=== PATIENT | female | born 1965 | race Caucasian/White ===

== ENCOUNTER 2017-11-28 20:03 | Emergency (ER) | payer OTHER, SELFPAY ==
[2017-11-28 20:04] VITALS: BP 128/76; PULSE 67; RESP 18; TEMP 36.1; O2SAT 98; BMI 30.7
[2017-11-28 21:07] LABS: D-Dimer Quantitative (DVT/PE) 0.44 FEU/ug/m (0.27-0.49)
--- NOTE | 2017-11-28 21:42 | ED.VISSUMM ---
- ER Visit Summary Date of Service: 11/28/17 Chief Complaint: Right calf pain status post long distance trip concern for pulmonary embolus History of Present Illness: The patient is a 51 F who presents with atraumatic right calf pain and lateral leg pain that started day after long distance trip. She denies chest pain, shortness of breath or difficulty breathing. She has no history of PE or DVT. She denies palpitation or rapid heartbeat. She denies dyspnea on exertion, orthopnea or PND. She denies any leg vein distention, right leg swelling or discoloration. Physical Examination: Vital signs noted and blood pressure slightly elevated 120/76. There is pain palpation proximal right gastrocnemius. There is no asymmetry, discoloration, leg vein distention, palpable cords or swelling. Remainder of exam is unremarkable please read written note Test Results: D-dimer is normal 0.44 Emergency Department Course and Treatment: Patient's well score was 1. She is low probability therefore will obtain d-dimer. Treatment Plan: Since d-dimer is negative symptomatic treatment Disposition: Discharged to home Impression: Right calf pain unknown etiology This note was generated with [employer] dictation software. It may contain incorrect words, spelling, and punctuation that were not noted in review of the chart prior to signing ED Disposition - Plan for ED Patient: Disposition: Home or Assisted Living Chief Complaint: Lower Extremity Injury Instructions: ED Acute Pain [facility] Referrals: Radha Marion DO [Primary Care Provider] - 1 Week if not improving
[2017-11-28 22:22] VITALS: BP 109/89; PULSE 54; RESP 14; O2SAT 97; O2SAT 98
== END 2017-11-28 22:25 | disposition home or self-care (01) ==
PROVIDERS: Emergency Provider Emergency Medicine; Family Provider Internal Medicine; PCP Internal Medicine
DX: M79.661 Pain in right lower leg (principal); R03.0 Elevated blood-pressure reading, without diagnosis of hypertension; Z79.899 Other long term (current) drug therapy
CPT/HCPCS: 85379; 99282

== ENCOUNTER → 2017-12-02 10:25 | Outpatient (CLI) | payer OTHER, SELFPAY | PROVIDERS: Family Provider Internal Medicine; PCP Internal Medicine; Visit Provider Nurse Practitioner | DX: M25.561 Pain in right knee (principal); M79.661 Pain in right lower leg | CPT/HCPCS: 73564; 93971 ==

== ENCOUNTER → 2017-12-15 09:58 | Outpatient (CLI) | payer OTHER, SELFPAY ==
--- NOTE | 2017-12-15 10:02 | BI_ITS ---
MAMMOGRAPHY - BILATERAL SCREENING REASON FOR EXAM: Female, 52 years old. Routine annual screening examination. PERTINENT HISTORY: Sister with breast cancer. Remote right stereotactic breast biopsy. TECHNIQUE: Digital bilateral breast sander (3D mammographic acquisition) in the CC and MLO projections. 2-D mediolateral oblique (MLO) and craniocaudad (CC) views of both breasts were obtained. CAD: Full Field Digital Mammography with Computer Added Detection was performed. COMPARISON: Comparison is made with prior study dated June 27, 2016 and June 14, 2015. FINDINGS: Breast Composition: There are scattered areas of fibroglandular density. There are no dominant masses or suspicious calcifications. A stereotactic tissue clip marker is seen in the upper deep slightly lateral portion of the left breast. Stable small benign-appearing bilateral axillary lymph nodes. No other significant abnormalities are identified. There has been no significant change since the prior study. BI/SCREENING MAMM (CAD), BILAT IMPRESSION: Stable bilateral screening mammogram. Yearly follow-up mammogram recommended. (A) ASSESSMENT CATEGORY: BIRADS Category 2: Benign. A letter regarding these results will be sent to the patient by the facility within 30 days. Approximately 10% of breast cancers are not detected by mammography. A normal mammogram should not delay biopsy of a clinically suspicious abnormality. [id number] Electronically Signed: Leonides Forbes MD at 13:14 EDT Tel [phone], Service support ,
== END ==
PROVIDERS: Family Provider Internal Medicine; PCP Internal Medicine; Visit Provider Nurse Practitioner
DX: Z12.31 Encounter for screening mammogram for malignant neoplasm of breast (principal)
CPT/HCPCS: 77063; 77067

== ENCOUNTER → 2017-12-25 09:44 | Outpatient (CLI) | payer OTHER, SELFPAY ==
--- NOTE | 2017-12-25 10:45 | MRI_ITS ---
STUDY: MRI LUMBAR SPINE WITHOUT CONTRAST REASON FOR EXAM: Female, 52 years old. Pain, right leg numbness and tingling and weakness in right foot x one month. History of spinal fusion in 2005. TECHNIQUE: Standardized fat and water weighted pulse sequences were obtained in the sagittal and axial planes. COMPARISON: None FINDINGS: T11-T12: (Sagittal only). Normal endplates. Normal disc height, hydration and morphology. Normal central canal and bilateral intervertebral neural foramina. T12-L1: (Sagittal only). Normal endplates. Normal disc height, hydration and morphology. Normal central canal and bilateral intervertebral neural foramina. Normal lumbar lordosis. There is no substantial scoliosis. Normal conus medullaris that terminates at the lower L1 vertebral body level. L1-2: Normal endplates. Normal disc height, hydration and morphology. Normal bilateral facet joints. Normal central canal and bilateral lateral recesses. Normal bilateral intervertebral neural foramina. L2-3: Normal endplates. Normal disc height, hydration and morphology. Normal bilateral facet joints. Normal central canal and bilateral lateral recesses. Normal bilateral intervertebral neural foramina. L3-4: Normal endplates. Mild disc space height narrowing with moderate loss of disc hydration. Decreased size of small posterior midline disc protrusion. Mild central canal stenosis with an AP canal diameter of 7.7 mm it. Normal bilateral lateral recesses. Normal facet joints. Normal bilateral intervertebral neural foramina. L4-5: Interval placement of a disc implant. Pedicular screws at L4 and L5. Normal central canal and bilateral lateral recesses. Moderate stenosis of the right intervertebral neural foramen due to a prominent bone fragment below the right intervertebral neural foramen (series 2 and 3, image 10). Normal left intervertebral neural foramen. Normal central canal. L5-S1: Disc implant inside the disc space. Pedicular screws and rods. Normal bilateral intervertebral neural foramina. Normal central canal and bilateral lateral recesses. Right lateral extradural defect extends from the right L5 hemilaminectomy. This is most likely postoperative fibrosis. Normal bilateral intervertebral neural foramina. Normal visualized sacral ala. Normal visualized paraspinous soft tissue structures. MRI/Spine Lumbar (Routine) IMPRESSION: 1. 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 2. Interval posterior fusion using pedicular screws and rods from L4 down to S1 and interval placement of disc implants inside the L4-L5 and L5-S1 disc spaces. 3. Mild central canal stenosis at L3-L4 disc space level with decrease in size of now small posterior midline disc protrusion. 4. Right lateral extradural defect extends from the right L5 hemilaminectomy site. This is most likely postoperative fibrosis. 5. No other additional findings or changes since 07/11/2005. Electronically Signed: Anil Manning MD at 14:34 EDT , Service support ,
== END ==
PROVIDERS: Family Provider Internal Medicine; PCP Internal Medicine; Referring Provider Orthopaedic Surgery Orthopaedic Surgery of the Spine; Visit Provider Orthopaedic Surgery Orthopaedic Surgery of the Spine
DX: M51.16 Intervertebral disc disorders with radiculopathy, lumbar region (principal); M48.062 Spinal stenosis, lumbar region with neurogenic claudication
CPT/HCPCS: 72148

== ENCOUNTER 2018-02-03 07:26 | Day surgery (SDC) | payer OTHER, SELFPAY ==
[2018-02-03 07:48] VITALS: BP 140/94; PULSE 55; RESP 16; TEMP 36.7; O2SAT 99; BMI 31.3
[2018-02-03] MEDS: Lactated Ringers 1,000 ML 125 ML IV (08:17)
--- NOTE | 2018-02-03 09:30 | RAD_ITS ---
STUDY: X-RAY - RIGHT KNEE REASON FOR EXAM: Female, 52 years old. Arthroscopy. TECHNIQUE: 2 coned-down intraoperative view(s) of the knee. COMPARISON: None. FINDINGS: Intraoperative imaging provided for arthroscopy. The tip of the trocar is seen along the medial tibial condyle. RAD/Knee 1 or 2 Views IMPRESSION: Intraoperative imaging for arthroscopy. Electronically Signed: Leonides Forbes MD at 14:57 EST Tel [phone], Service support ,
[2018-02-03] MEDS: Cefazolin 1 GM/50 ML BAG IV (09:45)
--- NOTE | 2018-02-03 10:41 | PCM.OPRPT ---
Report of Operation Date of Procedure: 02/03/18 Pre-Operative Diagnosis: 1. Right knee posterior horn medial meniscus tear. 2. Right knee subchondral stress fracture medial tibial condyle. 3. Right knee medial compartment chondromalacia Post-Operative Diagnosis: 1. Right knee posterior horn medial meniscus tear. 2. Right knee subchondral stress fracture medial tibial condyle. 3. Patellofemoral chondromalacia. . Right knee medial compartment chondromalacia Surgery/Procedure Performed:: 1. Right knee arthroscopic partial medial meniscectomy. 2. Right knee arthroscopic assisted fixation of the right medial tibial condyle. 3. Right knee patella femoral chondroplasty Description of Surgical Findings:: See operative report client resource specialist: None Type of Anesthesia:: General Anesthesiologist: Jai Cuellar Special Medications: 2 g Ancef Specimen's removed: None Estimated Blood Loss (mL): 5 Fluids Replaced: 1100 mL crystalloid Description of Procedure: On the date of the procedure, the patient's r lower extremity was marked in the preoperative area. Patient was brought back to the operating room where they were transferred to the bed. Anesthesia assumed control of the C-spine airway and administered anesthetic. All bony prominences were identified and well-padded and the R leg was placed in the arthroscopic leg vasquez. The contralateral leg was then draped over the bed and well-padded. There was padding underneath both sciatic nerves. The foot of the bed was then dropped and the R leg was prepped in a sterile fashion. The surgeon then scrubbed. Upon reentering the room, the operative leg was draped in a standard orthopedic fashion. A timeout was called, everyone agreed upon the side, the site, the procedure to be performed, patient's identity and antibiotics given. Incisions were marked out for the medial and lateral infrapatellar portals. Esmarch bandage was then used to exsanguinate the leg and tourniquet was placed at 250 mmHg. At this time, the lateral portal incision was made in a vertical fashion. The trocar was placed into the joint. The camera was then placed and the patellofemoral joint was visualized. The patella did appear to have grade 3 and grade 4 chondral changes. The trochlea appeared to have grade 1 chondral changes. We then directed our attention to the medial gutter where there was no foreign body. Then directed our attention to the medial joint compartment. There were grade 3 chondral changes on the medial distal femur there was no full-thickness defect or defect that could potentially be repaired with microfracture surgery, grade 2-3 chondral changes on the medial tibial plateau. The medial meniscus had posterior horn tear, complex. The medial portal was then placed under direct visualization using a spinal needle an 11 blade scalpel. Once this was done a probe was placed in the joint and the meniscus was probed finding extent of the posterior horn tear. The biters and jerman were then used sequentially to debriding get rid of any free edges that could be a source of pain and catching in the meniscus tear. Once we felt medial meniscus tear was adequately debrided, we again visualized the joint and noted the meniscus tear was adequately debrided. Attention was then turned towards the notch where the anterior cruciate ligament was intact. PCL was visualized and appeared intact. Attention was then directed towards the lateral compartment where the lateral distal femur had minimal chondral changes, the lateral proximal tibia had minimal chondral changes. The lateral meniscus had no tears. We then directed our attention to the lateral gutter, which was visualized and no free bodies were noted. Based on the preoperative review of the patient's r knee MRI, the location of the bone marrow lesion, consistent with an insufficiency or stress fracture in the MTC was identified. Preoperative surgical planning allowed for determination of the optimal method for assessing the lesion. Intraoperatively, image fluoroscopy combined with bone targeting instrumentation from [employer] was used to guide surgical instruments into the proximity of the subchondral MTC fracture. The standard repair methodology was used to treat the subchondral bone defect in the MTC. Image fluoroscopy was utilized to confirm accurate insertion of the active port injection cannula into the subchondral fracture. After insertion, fracture stabilization was performed by injecting 2.5 cc of [employer] bone substitute material into the MTC. Image fluoroscopy was used to monitor the injection process and ensure injection of the bone substitute into the subchondral bone so that the bile material flowed into the fracture site to stabilize the fracture and facilitate fracture repair. After this was performed the arthroscope was placed back into the knee and a diagnostic arthroscopy was performed to ensure no intra-articular cement was encountered. None was encountered. We then directed our attention back to the patellofemoral joint where the grade 3 chondral malacia was identified. This area of cartilage flaps were debrided using the shaver performing her patellofemoral chondroplasty At this time the wound was copiously irrigated out with normal saline with epinephrine. The wound was closed with 4-0 nylon and 0.5% Marcaine and epinephrine were injected for local anesthetic. Xeroform was placed over the incision. Sterile dressing was placed. Compressive dressing was placed. Tourniquet was let down. For that there was then placed up. Patient was awakened by anesthesia patient was transferred to the PACU for recovery in stable condition. Postoperative plan: Patient will be made nonweightbearing for 2 weeks. Return to activities as tolerated. He will come to the office in 2 weeks for postoperative wound check and suture removal. If he is doing well that time he can follow-up as needed. Grafts/Implants Used: [employer] bone cement - Complications None - Admit VTE Documentation VTE Present on Admission: No VTE Mechan Device Prophylaxis: SCD's, Thigh High JOSE Hose VTE Pharm Prophylaxis ordered?: Yes
--- NOTE | 2018-02-03 10:46 | OP.PCM_ITS ---
Report of Operation Date of Procedure: 02/03/18 Pre-Operative Diagnosis: 1. Right knee posterior horn medial meniscus tear. 2. Right knee subchondral stress fracture medial tibial condyle. 3. Right knee medial compartment chondromalacia Post-Operative Diagnosis: 1. Right knee posterior horn medial meniscus tear. 2. Right knee subchondral stress fracture medial tibial condyle. 3. Patellofemoral chondromalacia. . Right knee medial compartment chondromalacia Surgery/Procedure Performed:: 1. Right knee arthroscopic partial medial meniscectomy. 2. Right knee arthroscopic assisted fixation of the right medial tibial condyle. 3. Right knee patella femoral chondroplasty Description of Surgical Findings:: See operative report pantry attendant: None Type of Anesthesia:: General Anesthesiologist: Jai Cuellar Special Medications: 2 g Ancef Specimen's removed: None Estimated Blood Loss (mL): 5 Fluids Replaced: 1100 mL crystalloid Description of Procedure: On the date of the procedure, the patient's r lower extremity was marked in the preoperative area. Patient was brought back to the operating room where they were transferred to the bed. Anesthesia assumed control of the C-spine airway and administered anesthetic. All bony prominences were identified and well- padded and the R leg was placed in the arthroscopic leg vasquez. The contralateral leg was then draped over the bed and well-padded. There was padding underneath both sciatic nerves. The foot of the bed was then dropped and the R leg was prepped in a sterile fashion. The surgeon then scrubbed. Upon reentering the room, the operative leg was draped in a standard orthopedic fashion. A timeout was called, everyone agreed upon the side, the site, the procedure to be performed, patient's identity and antibiotics given. Incisions were marked out for the medial and lateral infrapatellar portals. Esmarch bandage was then used to exsanguinate the leg and tourniquet was placed at 250 mmHg. At this time, the lateral portal incision was made in a vertical fashion. The trocar was placed into the joint. The camera was then placed and the patellofemoral joint was visualized. The patella did appear to have grade 3 and grade 4 chondral changes. The trochlea appeared to have grade 1 chondral changes. We then directed our attention to the medial gutter where there was no foreign body. Then directed our attention to the medial joint compartment. The re were grade 3 chondral changes on the medial distal femur there was no full- thickness defect or defect that could potentially be repaired with microfracture surgery, grade 2-3 chondral changes on the medial tibial plateau. The medial meniscus had posterior horn tear, complex. The medial portal was then placed under direct visualization using a spinal needle an 11 blade scalpel. Once this was done a probe was placed in the joint and the meniscus was probed finding extent of the posterior horn tear. The biters and jerman were then used sequentially to debriding get rid of any free edges that could be a source of pain and catching in the meniscus tear. Once we felt medial meniscus tear was adequately debrided, we again visualized the joint and noted the meniscus tear was adequately debrided. Attention was then turned towards the notch where the anterior cruciate ligament was intact. PCL was visualized and appeared intact. Attention was then directed towards the lateral compartment where the lateral distal femur had minimal chondral changes, the lateral proximal tibia had minimal chondral changes. The lateral meniscus had no tears. We then directed our attention to the lateral gutter, which was visualized and no free bodies were noted. Based on the preoperative review of the patient's r knee MRI, the location of the bone marrow lesion, consistent with an insufficiency or stress fracture in the MTC was identified. Preoperative surgical planning allowed for determination of the optimal method for assessing the lesion. Intraoperatively, image fluoroscopy combined with bone targeting instrumentation from [employer] was used to guide surgical instruments into the proximity of the subchondral MTC fracture. The standard repair methodology was used to treat the subchondral bone defect in the MTC. Image fluoroscopy was utilized to confirm accurate insertion of the active port injection cannula into the subchondral fracture. After insertion, fracture stabilization was performed by injecting 2.5 cc of [employer] bone substitute material into the MTC. Image fluoroscopy was used to monitor the injection process and ensure injection of t he bone substitute into the subchondral bone so that the bile material flowed into the fracture site to stabilize the fracture and facilitate fracture repair. After this was performed the arthroscope was placed back into the knee and a diagnostic arthroscopy was performed to ensure no intra-articular cement was encountered. None was encountered. We then directed our attention back to the patellofemoral joint where the grade 3 chondral malacia was identified. This area of cartilage flaps were debrided using the shaver performing her patellofemoral chondroplasty At this time the wound was copiously irrigated out with normal saline with epinephrine. The wound was closed with 4-0 nylon and 0.5% Marcaine and epinephrine were injected for local anesthetic. Xeroform was placed over the incision. Sterile dressing was placed. Compressive dressing was placed. Tourniquet was let down. For that there was then placed up. Patient was awakened by anesthesia patient was transferred to the PACU for recovery in stable condition. Postoperative plan: Patient will be made nonweightbearing for 2 weeks. Return to activities as tolerated. He will come to the office in 2 weeks for postoperative wound check and suture removal. If he is doing well that time he can follow-up as needed. Grafts/Implants Used: [employer] bone cement - Complications None - Admit VTE Documentation VTE Present on Admission: No VTE Mechan Device Prophylaxis: SCD's, Thigh High JOSE Graham VTE Pharm Prophylaxis ordered?: Yes
[2018-02-03 10:48] VITALS: BP 123/80; BP 140/94; PULSE 47; RESP 16; TEMP 36.1; O2SAT 99
[2018-02-03 11:00] VITALS: BP 122/79; BP 140/94; PULSE 53; RESP 16; O2SAT 99
[2018-02-03 11:15] VITALS: BP 140/94; BP 145/80; PULSE 56; RESP 16; TEMP 36; O2SAT 100
[2018-02-03] MEDS: Ketorolac 30 MG/ML Syringe IV (11:19)
[2018-02-03 12:00] VITALS: BP 140/94
[2018-02-03 12:17] VITALS: BP 130/78; BP 140/94; PULSE 70; RESP 18; TEMP 36.7; O2SAT 99
== END 2018-02-03 12:18 | disposition home or self-care (01) ==
LOC: SDC 07:26 → AC 07:27
PROVIDERS: Family Provider Internal Medicine; PCP Internal Medicine; Referring Provider Specialist; Visit Provider Specialist
PROC: (CPT 29870; principal; 2018-02-03 09:10)
DX: S83.231A Complex tear of medial meniscus, current injury, right knee, initial encounter (principal); M84.361A Stress fracture, right tibia, initial encounter for fracture; M22.41 Chondromalacia patellae, right knee; M17.11 Unilateral primary osteoarthritis, right knee; X58.XXXA Exposure to other specified factors, initial encounter; Y93.9 Activity, unspecified; Y92.9 Unspecified place or not applicable; Y99.9 Unspecified external cause status; Z79.82 Long term (current) use of aspirin; Z79.899 Other long term (current) drug therapy; Z78.0 Asymptomatic menopausal state; Z87.891 Personal history of nicotine dependence
CPT/HCPCS: 29855; 29881; 64447; 73560; 76000; C1713; J7120; J2405

== ENCOUNTER → 2019-03-15 15:04 | Outpatient (CLI) | payer OTHER, SELFPAY ==
--- NOTE | 2019-03-15 15:07 | BI_ITS ---
MAMMOGRAPHY - BILATERAL SCREENING REASON FOR EXAM: Female, 53 years old. Routine annual screening examination. PERTINENT HISTORY: Sister with breast cancer. Remote right stereotactic breast biopsy. TECHNIQUE: Digital bilateral breast promise (3D mammographic acquisition) in the CC and MLO projections. 2-D mediolateral oblique (MLO) and craniocaudad (CC) views of both breasts were obtained. CAD: Full Field Digital Mammography with Computer Added Detection was performed. COMPARISON: Comparison is made with prior study dated December 15, 2017 and June 27, 2016. FINDINGS: Breast Composition: There are scattered areas of fibroglandular density. There are no dominant masses or suspicious calcifications. Stable small benign-appearing bilateral axillary lymph nodes. A tissue clip marker from prior biopsy is seen in the deep upper lateral aspect of the right breast. No other significant abnormalities are identified. There has been no significant change since the prior study. BI/SCREEN MAMM (CAD) W/PROMISE BILAT IMPRESSION: Stable bilateral screening mammogram. Yearly follow-up mammogram recommended. (A) ASSESSMENT CATEGORY: BIRADS Category 2: Benign. A letter regarding these results will be sent to the patient by the facility within 30 days. Approximately 10% of breast cancers are not detected by mammography. A normal mammogram should not delay biopsy of a clinically suspicious abnormality. [id number] Electronically Signed: Leonides Forbes, at 8:35 EST , Service support ,
--- NOTE | 2019-03-15 15:14 | BD_ITS ---
STUDY: DUAL ENERGY X-RAY ABSORPTIOMETRY / DXA REASON FOR EXAM: Female, 53 years old. The patient is postmenopausal. Loss of height. TECHNIQUE: Bone Mineral Density (BMD) measurements of lumbar spine and bilateral hips were obtained. COMPARISON: None. FINDINGS: Lumbar Spine (L1-L4): g/cm2 (1.196) / T-score (0.3) / Z-score (1.1) Findings are suggestive of normal bone density with a low fracture risk. Left Femur Total: g/cm2 (0.966) / T-score (-0.3) / Z-score (0.3) Left Femoral Neck: g/cm2 (1.014) / T-score (-0.2) / Z-score (0.8) Right Femur Total: g/cm2 (0.968) / T-score (-0.3) / Z-score (0.3) Right Femoral Neck: g/cm2 (0.973) / T-score (-0.5) / Z-score (0.6) BD/Dexa Bone Density Study IMPRESSION: The patient is considered normal as outlined below according to World Kunal Organization (WHO) criteria with a low fracture risk. Reference Information: The T-score is the number of standard deviations above or below the standard which is normal for young adults at their peak bone mineral density. The World Health Organization (WHO) interprets the T-scores as follows: Above -1 Normal bone density Between -1 and -2.5 Osteopenia Equal to / or below -2.5 Osteoporosis As a practical clinical guideline, osteopenia may be graded as follows: Mild -1 through -1.5 Moderate -1.6 through -2.0 Severe -2.1 through -2.4 The Z-score is the number of standard deviations above or below age-matched controls. A Z-score of less than -1.5 would be considered abnormal. References: 1. NIH Osteoporosis and Related Bone Diseases http://www.osteo.org 2. International Society for Clinical Densitometry http://www.iscd.org 3. National Osteoporosis Foundation http://www.nof.org Electronically Signed: Leonides Forbes, at 13:24 EST , Service support ,
== END ==
PROVIDERS: Family Provider Internal Medicine; PCP Internal Medicine; Referring Provider Internal Medicine; Visit Provider Internal Medicine
DX: Z78.0 Asymptomatic menopausal state (principal); Z12.31 Encounter for screening mammogram for malignant neoplasm of breast; Z80.3 Family history of malignant neoplasm of breast
CPT/HCPCS: 77063; 77067; 77080

== ENCOUNTER → 2019-10-10 | Outpatient (CLI) | payer BC, SELFPAY ==
--- NOTE | 2019-10-10 08:37 | EKG12_ITS ---
Test Reason : PREOP Blood Pressure : / mmHG Vent. Rate : 054 BPM Atrial Rate : 054 BPM P-R Int : 132 ms QRS Dur : 092 ms QT Int : 458 ms P-R-T Axes : 023 036 059 degrees QTc Int : 434 ms Sinus bradycardia Otherwise normal ECG Confirmed by JEREMIAH CHEUNG, ISABEL ([id number]), visual effects editor BIRGIT PENDLETON ([id number]) on 10/11/2019 1:35:22 PM Referred By: Robin Pendleton Confirmed By:ISABEL DANIELS MD
== END | disposition home or self-care (01) ==
PROVIDERS: PCP Internal Medicine; Referring Provider Orthopaedic Surgery; Visit Provider Orthopaedic Surgery
DX: Z01.818 Encounter for other preprocedural examination (principal); Z01.810 Encounter for preprocedural cardiovascular examination
CPT/HCPCS: 87635; 93005; G2023; U0003

== ENCOUNTER 2021-11-04 13:30 | Emergency (ER) | payer OTHER, SELFPAY ==
[2021-11-04] VITALS (7 sets, daily range): BP systolic 111–157; BP diastolic 67–96; PULSE 53–69; RESP 15–20; TEMP 36.4; O2SAT 94–100; BMI 33.0
--- NOTE | 2021-11-04 13:48 | EKG12_ITS ---
Test Reason : cp Blood Pressure : / mmHG Vent. Rate : 055 BPM Atrial Rate : 055 BPM P-R Int : 136 ms QRS Dur : 090 ms QT Int : 450 ms P-R-T Axes : 038 026 060 degrees QTc Int : 430 ms Sinus bradycardia Otherwise normal ECG Confirmed by ANGELA CHEUNG, JENNIFER ([id number]), fashion editor BILLY CARVER ([id number]) on 11/05/2021 9:30:19 AM Referred By: Brandon Confirmed By:JENNIFER MILLER MD
--- NOTE | 2021-11-04 14:10 | RAD_ITS ---
STUDY: X-RAY CHEST REASON FOR EXAM: Female, 55 years old. Chest pain TECHNIQUE: Single AP portable view of the chest. COMPARISON: Comparison is made with prior study dated 06/08/2012. FINDINGS: EKG electrodes are seen. The lungs are clear and expanded. There is no demonstrated pleural abnormality. Normal size heart. Normal mediastinum and adal. Normal visualized pulmonary arteries. Normal visualized aortic arch and descending thoracic aorta. There are degenerative changes of the visualized thoracic spine. Metallic anchors are seen in the region of the left shoulder joint suggests a prior surgery. There is no demonstrated abnormality of the visualized soft tissue structures of the upper abdomen. RAD/Chest 1 View (Portable) IMPRESSION: No acute abnormality is seen. Electronically Signed: Leonides Forbes MD at 14:30 EDT ,
[2021-11-04 14:15] LABS: Absolute Lymphocyte Count 2.23 X10^3/uL (0.83-4.51); Absolute Neutrophil Count 5.2 X10^3/uL (2.0-7.7); Basophil# 0.04 X10^3/uL; Basophil% 0.5 % (0-1); Eosinophil# 0.12 X10^3/uL; Eosinophils% 1.5 % (0-5); Hematocrit 42.2 % (37-47); Hemoglobin 14.2 g/dL (12.0-15.0); Lymphocyte # 2.23 X10^3/ul (0.83-4.51); Lymphocyte % 27.4 % (19-41); Mean Corp Hgb Conc 33.6 g/dL (32-36); Mean Corpuscular Hgb 30.7 pg (27.0-32.0); Mean Corpuscular Volume 91.1 fL (81-99); Mean Platelet Vol. 10.2 fl (6.2-12.0); Monocyte# 0.56 X10^3/uL; Monocyte% 6.9 % (0-10); NRBC Flagged by Analyzer 0 % (0-5); Neutrophil # 5.18 X10^3/uL (2.7-7.7); Neutrophil % 63.5 % (47-70); Platelet Count 249 K/mm3 (150-450); RBC Distribution Width CV 13.1 % (11.6-14.6); RBC Distribution Width SD 43.6 fl (35.1-43.9); Red Blood Count 4.63 M/mm3 (4.2-5.4); White Blood Count 8.2 K/mm3 (4.4-11.0)
[2021-11-04] MEDS: Aspirin 81 MG TAB.CHEW 324 MG PO (14:15)
[2021-11-04] MEDS: Nitroglycerin SL (ED/IMG/CATH) 0.4 MG TABLET SL (14:27)
[2021-11-04 14:33] LABS: Anion Gap 4 (5-15); BUN 15 mg/dL (7-18); BUN/Creat Ratio 21.8 RATIO (10-20); Calcium,Total 9.1 mg/dL (8.5-10.1); Chloride 107 mmol/L (98-107); Creatinine, Serum 0.69 mg/dL (0.55-1.02); EST Glomerular Filtration Rate 93 mL/min (>60); Est Glom Filt Rate - Afr Amer 113 mL/min (>60); Estimated Creatinine Clearance 84.21 ml/min; Glucose 91 mg/dL (74-106); Potassium 3.9 mmol/L (3.5-5.1); Sodium Level 138 mmol/L (136-145); Troponin-I HS (w/2H Reflex) < 3 pg/mL (3.0-54.0)
--- NOTE | 2021-11-04 16:08 | ED.VIS.CHEST ---
HPI History of Present Illness Chief Complaint: Chest Pain Informant: patient Onset/Context/Timing Onset: Days (2) Activity at onset: gradual Timing: Continuous Quality: Positive for Pressure Location: Left Chest Worsened By: Nothing Relieved By: Nothing Associated Symptoms: Positive for Nausea and Diaphoresis; Negative for Vomiting, Dyspnea, Cough, Fever, Lightheadedness, Acid Reflux or Palpitations Narrative Narrative: Patient presents with chest pain that has been constant for the last 2 days. Patient describes it as a pressure. Patient states it is mainly over the left chest. Patient states nothing makes it better nothing makes it worse. Patient states she did break it into a sweat. Patient also admits to some nausea but denies any vomiting. Patient denies any fevers or chills. Patient denies any shortness of breath or cough. Patient has a history of hypertension but denies any other cardiac or PE risk factors. CVD Risk Factors: Positive for Hypertension; Negative for Diabetes, Hypercholesterolemia, Family History 1' </=55 or Smoking PE Risk Factors: Negative for Recent Travel/Surgery, Recent Immobilization, Prior DVT or PE, Cancer or OCP + Smoking + >/=35 PFSH PFSH Home Medications duloxetine 60 mg capsule,delayed release 60 mg PO DAILY 02/03/18 [History Last Taken Unknown] multivit with ubrzzlrm-pvqy-AF-lutein 8 mg iron-400 mcg-300 mcg tablet (Centrum Silver Women) 1 tab PO DAILY 11/04/21 [History Last Taken Unknown] tumeric 100 mg-lyly 150 mg-olive 50 mg-oreg 150 mg-caprylate capsule 1 cap PO DAILY 11/04/21 [History Last Taken Unknown] vit C-giodxgx-cmarwzjfr-rutin-[id number] 500 mg-50 mg-25 mg-40 mg tablet (Bioflex) 1 tab PO DAILY 11/04/21 [History Last Taken Unknown] Allergy/AdvReac Type Severity Reaction Status Date / Time No Known Allergies Allergy Verified 11/04/21 13:32 Surgical History Hx of knee surgery Social History Smoking Status: Never smoker ROS ROS ED Constitutional Constitutional ED: Reports sweats; Denies chills or fever(s) Eyes Eyes: Denies blurry vision or change in vision ENT ENT ED: Denies rhinorrhea or sore throat Cardiovascular Cardiovascular: Reports chest pain; Denies palpitations Respiratory/Chest Respiratory/Chest: Denies cough or dyspnea Gastrointestinal Gastrointestinal: Reports nausea; Denies abdominal pain or vomiting Genitourinary Genitourinary ED: Denies dysuria or hematuria Musculoskeletal Musculoskeletal: Denies back pain or neck pain Integumentary Denies abscess or rash Neurologic Neurologic: Reports headache(s); Denies weakness Allergic/Immunologic Allergic/Immunologic ED: Denies mouth swelling or urticaria EXAM Physical Exam Const Vital Signs: 11/04/21 13:30 11/04/21 13:46 11/04/21 13:46 Temperature 97.6 F L Temperature Source Temporal Pulse Rate 58 L 57 L Respiratory Rate 16 16 Respiratory Effort Normal Non-Labored Respiratory Pattern Normal Blood Pressure 157/92 H 141/96 H Blood Pressure Mean 113 111 Pulse Ox 100 94 Oxygen Delivery Method Room Air Room Air 11/04/21 14:16 11/04/21 14:16 11/04/21 14:27 Temperature Temperature Source Pulse Rate 60 56 L Respiratory Rate 16 Respiratory Effort Respiratory Pattern Blood Pressure 111/86 H 111/85 H Blood Pressure Mean 94 Pulse Ox 96 96 Oxygen Delivery Method Room Air Room Air 11/04/21 14:37 11/04/21 15:35 Temperature Temperature Source Pulse Rate 57 L 53 L Respiratory Rate 15 20 H Respiratory Effort Respiratory Pattern Blood Pressure 125/83 H 119/68 Blood Pressure Mean 97 85 Pulse Ox 98 96 Oxygen Delivery Method Room Air Room Air Positive well nourished, well developed and obese General Appearance ED: well developed and NAD Nutritional Appearance: obese HEENT normocephalic and atraumatic Eyes PERRL and EOMs intact bilaterally Neck supple and no JVD Chest Wall palpation of chest normal Resp normal respiratory effort and clear to auscultation bilaterally Effort and Inspection: Negative for respiratory distress Cardio regular rate, regular rhythm and no murmurs GI normal to inspection, nondistended, normoactive bowel sounds, soft to palpation, non-tender and non-distended Extremity normal to inspection General Extremety ED: Negative for edema or tenderness General Extremity: Negative for edema Neuro oriented x3, CN's II-XII intact bilaterally and no sensory deficits noted Sensorium / Orientation: awake and alert Motor Exam: strength 5/5 throughout Psych mental status grossly normal Heart Score History: Slightly/Non-Suspicious ECG: Normal Age: >45 - <65 years Risk Factors: 1 or 2 Risk Factors Troponin: </= Normal Limit Score: 2 MDM MDM MDM Narrative Medical decision making narrative: Patient was given aspirin and sublingual nitroglycerin. EKG was obtained. On my interpretation, it showed a sinus bradycardia with a rate of 55. NV interval, QRS interval, and QTc intervals were all normal. [place] was normal. There are no acute ST or T wave changes. Portable 1 view chest x-ray was obtained. On my interpretation, lung corcoran are clear. There is normal cardiac silhouette. Bony thorax is normal. There is no acute process noted. Radiologist also interpreted the x-ray and agrees. CBC was within normal limits. Basic metabolic profile was within normal limits. High-sensitivity troponin was less than 3. 2-hour repeat high-sensitivity troponin was obtained and was within normal limits. Patient is feeling better on reevaluation. Patient's blood pressure improved on reevaluation. Patient has a HEART score of 2. Patient was advised that this is low risk for acute cardiac event. Patient was instructed to follow-up with her primary care physician in 5 to 7 days. Patient was instructed to return if worse in any way. Patient understood and was agreeable with the plan. All questions were answered. Lab Data Attestation: I reviewed the patient's lab results. Labs: Laboratory Results - last 24 hr 11/04/21 11/04/21 11/04/21 14:04 14:04 16:07 WBC 8.2 RBC 4.63 Hgb 14.2 Hct 42.2 MCV 91.1 MCH 30.7 MCHC 33.6 RDW Std Deviation 43.6 RDW Coeff of Chuck 13.1 Plt Count 249 MPV 10.2 Immature Gran % (Auto) 0.200 Neut % (Auto) 63.5 Lymph % (Auto) 27.4 [place] % (Auto) 6.9 Eos % (Auto) 1.5 Baso % (Auto) 0.5 Absolute Neuts (auto) 5.2 Absolute Lymphs (auto) 2.23 Nucleated RBC % 0 Sodium 138 Potassium 3.9 Chloride 107 Carbon Dioxide 27.0 Anion Gap 4 L BUN 15 Creatinine 0.69 Estim Creat Clear Calc 84.21 Est GFR (MDRD) Af Amer 113 Est GFR (MDRD) Non-Af 93 BUN/Creatinine Ratio 21.8 H Glucose 91 Calcium 9.1 Troponin I High Sens < 3 L 3 Radiography Chest X-Ray - ED: 1 View, Read by ED Physician, Read by Radiologist, Normal and No Acute Disease Diagnostic Testing: Clinical Impression(s) from Imaging Studies Chest X-Ray 11/04/21 14:10 IMPRESSION: No acute abnormality is seen. Electronically Signed: Leonides Forbes MD at 14:30 EDT , EKG Initial EKG: Attestation: I personally reviewed and interpreted this EKG as follows: Interpretation: No Acute Injury Pattern and Sinus Bradycardia (55) Prior EKG tracings: available for review Prior: Unchanged (10/10/2019) Discharge Plan Triage Chief Complaint: Chest Pain ED Provider: Chidi Persaud Dx/Rx/DC Orders Clinical Impression: Chest pain of uncertain etiology, Elevated blood pressure reading Instructions: ED Chest Pain, Uncertain Cause, ED Hypertension, To Be Confirmed Prescriptions: No Action duloxetine 60 MG capsule,delayed release(DR/EC) 60 mg PO DAILY Centrum Silver Women 8 mg iron-400 mcg-300 mcg Tablet 1 tab PO DAILY Bioflex [id number] mg Tablet 1 tab PO DAILY hqnrwri-rgnr-daxuq-oreg-capryl 100 mg-150 mg- 50 mg-150 mg Capsule 1 cap PO DAILY Primary Care Provider: Radha Marion Referrals: Radha Marion DO [Primary Care Provider] - 5-7 Days Disposition Disposition: Home, Self Care
[2021-11-04 16:12] LABS: Reflex Troponin-HS? (from REC) Y
[2021-11-04 16:37] LABS: Troponin-I HS 3 pg/mL (3.0-54.0)
== END 2021-11-04 16:47 | disposition home or self-care (01) ==
PROVIDERS: Emergency Provider Emergency Medicine; PCP Internal Medicine; Visit Provider Emergency Medicine
DX: R07.9 Chest pain, unspecified (principal); I10 Essential (primary) hypertension; E66.9 Obesity, unspecified; Z68.33 Body mass index [BMI] 33.0-33.9, adult
CPT/HCPCS: 71045; 80048; 84484; 85025; 93005; 99284; A4216

== ENCOUNTER → 2022-01-16 | Outpatient (CLI) | payer OTHER, SELFPAY ==
--- NOTE | 2022-01-16 10:17 | BI_ITS ---
MAMMOGRAPHY - BILATERAL SCREENING 3-D TOMOSYNTHESIS REASON FOR EXAM: Female, 56 years old. Routine screening PERTINENT HISTORY: Sister with breast cancer.. TECHNIQUE: 2-D mammograms and 3-D Tomosynthesis of the breast (s) were performed. CAD was performed. COMPARISON: 2018 FINDINGS: The breast composition is composed of scattered fibroglandular density. Scattered benign calcifications are seen. No dense spiculated masses or suspicious microcalcifications are identified. No architectural distortion is identified. There is no skin thickening or retraction. There has been no significant change since the prior study. BI/SCRN MAMM (CAD)W/PROMISE BILAT IMPRESSION: No mammographic signs of malignancy. Routine yearly mammograms recommended. ASSESSMENT CATEGORY: BIRADS Category 1: Negative. A letter regarding these results will be sent to the patient by the facility within 30 days. FOLLOW UP RECOMMENDATION: Yearly follow up mammogram recommended. (A) Approximately 10% of breast cancers are not detected by mammography. A normal mammogram should not delay biopsy of a clinically suspicious abnormality. Electronically Signed: Sacha Mccord MD at 11:20 EDT ,
--- NOTE | 2022-01-16 10:36 | BD_ITS ---
STUDY: DUAL ENERGY X-RAY ABSORPTIOMETRY / DXA REASON FOR EXAM: Female, 56 years old. [id number] TECHNIQUE: Bone Mineral Density (BMD) measurements of lumbar spine and bilateral hips were obtained. COMPARISON: Comparison is made with prior study dated 03/15/2019. FINDINGS: Lumbar Spine (L1-L4): g/cm2 (1.103) / T-score (0.8) / Z-score (2.0) Findings are suggestive of normal bone density with a low fracture risk. Left Femur Total: g/cm2 (0.885) / T-score (-0.5) / Z-score (0.4) Left Femoral Neck: g/cm2 (0.792) / T-score (-0.5) / Z-score (0.7) Right Femur Total: g/cm2 (0.897) / T-score (-0.4) / Z-score (0.5) Right Femoral Neck: g/cm2 (0.756) / T-score (-0.8) / Z-score (0.4) The T-Scores on the most recent prior examination were: Lumbar Spine (L1-L4): There has been worsening of bone density since the previous examination. Left Femur Total: which represents a worsening of 1.8%. Right Femur Total: which represents a worsening of 0.7%. BD/Dexa Bone Density Study IMPRESSION: The patient is considered normal as outlined below according to World Kunal Organization (WHO) criteria with a low fracture risk. There has been worsening of bone density since the previous examination. Reference Information: The T-score is the number of standard deviations above or below the standard which is normal for young adults at their peak bone mineral density. The World Health Organization (WHO) interprets the T-scores as follows: Above -1 Normal bone density Between -1 and -2.5 Osteopenia Equal to / or below -2.5 Osteoporosis As a practical clinical guideline, osteopenia may be graded as follows: Mild -1 through -1.5 Moderate -1.6 through -2.0 Severe -2.1 through -2.4 The Z-score is the number of standard deviations above or below age-matched controls. A Z-score of less than -1.5 would be considered abnormal. References: 1. NIH Osteoporosis and Related Bone Diseases www osteo.org 2. International Society for Clinical Densitometry www iscd.org 3. National Osteoporosis Foundation www nof.org Electronically Signed: Leonides Forbes MD at 13:57 EDT ,
== END | disposition home or self-care (01) ==
LOC: OPBD 10:15
PROVIDERS: PCP Internal Medicine; Visit Provider Internal Medicine
DX: Z13.820 Encounter for screening for osteoporosis (principal); Z78.0 Asymptomatic menopausal state; Z12.31 Encounter for screening mammogram for malignant neoplasm of breast; Z80.3 Family history of malignant neoplasm of breast
CPT/HCPCS: 77063; 77067; 77080

== ENCOUNTER → 2022-01-27 | Outpatient (CLI) | payer OTHER, SELFPAY ==
--- NOTE | 2022-01-27 14:55 | VDLE_ITS ---
Reason For Study: PAIN RIGHT LEFT CFV is compressible, spontaneous, phasic, GSV is normal. competent and demonstrates normal CFV is compressible, spontaneous, phasic, augmentation. competent, and demonstrates normal Procedure augmentation. Exam performed in department. FV is compressible, spontaneous, phasic, This is a venous duplex using B-mode, color competent and demonstrates normal flow and spectral Doppler. augmentation. A preliminary report was called and/or faxed POP V is compressible, spontaneous, phasic, to Isidro. competent and demonstrates normal augmentation. T/P Trunk is compressible. PTV is compressible. LT PerV is compressible. VL/Venous Duplex US, Unilateral Interpretation Summary Deep veins of the left lower extremity are patent and compressible segmentally. There is no evidence of left lower extremity deep vein thrombosis. Valvular competence appears intac t within the proximal deep venous system on the left . The left great saphenous vein appears patent a nd compressible segmentally. Ordering Physician: Pavithra Felix Referring Physician: Radha Marion M.D. Performed By: Davin Sánchez RVT
== END | disposition home or self-care (01) ==
LOC: CVS 14:53
PROVIDERS: PCP Internal Medicine; Referring Provider Nurse Practitioner Family; Visit Provider Nurse Practitioner Family
DX: M79.662 Pain in left lower leg (principal)
CPT/HCPCS: 93971

== ENCOUNTER → 2022-02-24 | Outpatient (CLI) | payer OTHER, SELFPAY ==
--- NOTE | 2022-02-24 16:44 | NEURO ---
NCS and/or EMG Patient Report Ordering Doctor: Radha Marion DATE OF SERVICE: 02/24/22 Indication: Bilateral hand numbness and tingling. Intermittent shocking pain up the forearms. Fingers will intermittently lock up. Findings: Nerve conduction studies were performed in the right and left upper extremities. The right median motor study recording the abductor pollicis brevis showed a normal amplitude, prolonged distal latency and slowed conduction velocity. The right ulnar motor study recording the abductor digiti minimi showed a normal amplitude, normal distal latency and normal conduction velocity. No conduction block or focal slowing was present across the elbow. The right median sensory response recording digit two showed a reduced amplitude, prolonged latency and markedly slowed conduction velocity. The right ulnar sensory response recording digit five showed a normal amplitude, latency and conduction velocity. The right radial sensory response recording over the extensor snuff box showed a normal amplitude, latency and conduction velocity. The left median motor study recording the abductor pollicis brevis showed a normal amplitude, prolonged distal latency and normal conduction velocity. The left ulnar motor study recording the abductor digiti minimi showed a normal amplitude, normal distal latency and normal conduction velocity. No conduction block or focal slowing was present across the elbow. The left median sensory response recording digit two showed a reduced amplitude, prolonged latency and markedly slowed conduction velocity. The left ulnar sensory response recording digit five showed a normal amplitude, latency and conduction velocity. The left radial sensory response recording over the extensor snuff box showed a normal amplitude, latency and conduction velocity. Needle EMG of the left upper extremity muscles was performed. No denervation was seen in any muscle. All motor unit morphology, activation and recruitment patterns were normal. Needle EMG of the right upper extremity was omitted given the symmetry of symptoms and lack of pertinent findings on needle exam of the left. Impression: This is an abnormal study. There is electrophysiologic evidence of mild median neuropathy across the wrist on both sides. The pathophysiology is predominantly demyelinating. These findings are compatible with the clinical diagnosis of carpal tunnel syndrome. Eddie Layne D.O. Multi Select Codes Neurology Neurology Interp Codes: 49863-18 Musc test done w/n test comp (interp) and 34423-79 Nrv cndj test 13/> studies (interp)
== END | disposition home or self-care (01) ==
LOC: PSN 15:12
PROVIDERS: PCP Internal Medicine; Referring Provider Internal Medicine; Visit Provider Internal Medicine
DX: R20.2 Paresthesia of skin (principal)
CPT/HCPCS: 95886; 95913

== ENCOUNTER 2022-04-01 17:00 | Outpatient (RCR) | payer OTHER, SELFPAY ==
--- NOTE | 2022-02-04 17:52 | HP.PTEVAL_ITS ---
Patient's Visit Information SHARON PEREIRA is a 56 year old F referred to Physical Therapy by Pavithra Felix, SANIA-C with a diagnosis of L knee pain and lumbar pain with radiculopathy.. Date of Evaluation: 02/04/22 Physical Therapist: Chidi Felix, DPT, OCS, CSCS - Visit Plan Frequency: 3x /Week Duration: 4-6 Weeks Plan: 2-3x/week for 3-6 weeks for aquatic to start for...( pt to be on vacation for two weeks until after thanksgi). 1. stretch quad and HS(doing these at home.) knee ROM L flexion/ext. 2. LB ROM and core strength in NS. 3. LE strength. 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 May progress to land if needed after pool if improving or return to doctor for ortho if not. - Subjective Been having problems with both knees, previous scopes for meniscus in her hi story years ago. L knee on the back started getting worse in calf and up to hip. Had US for blood clot which was negative. Insidious onset of stiffness and then more painful. Now cannot bend knee as it is stiff, no activities are new. 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 It bothers her after work.Walking is worse. Sleep is not interrupted usually but sometimes iust will wake her up. Does basic ADLS abut it bothers her, steps are challenging. Has some chronic LBP and worse with slouching, it does not go along with the knee but comes and goes chronically. Big toe on L foot is numb. Has history of back fusion while ago. Hands fall asleep all the time and will have test EMG. No neck problems. Knees much worse than back. No regular exercises except calf stretch. - Pain L posterior knee. Pain Intensity (Out of 10): 1 Pain Intensity Range: 0, 8 Comment: am worse, better elevated in recliner. - Objective L knee varus in gait is obhvious and antalgic but I. Trasnfers I bed and chair. Steps painful on L descending > ascending. posture is stiff and flat lordosis, kyphosis in t/s. L knee AROM -4 to 90 degrees and R knee is 0-120. Stiff and sore end range of L knee flexion. LB AROM ext is max limited and flexion mod limited, SB are mod limited. HS and quads max tight B. - slump and - SLR tests. - valgus and varus. - bounce home. - post sag, - ant drawer. hip strength abd and ext 3+ B, flexion 3+ R and 4- L. knee ext 4- B with some L pain, HS 4- B. ankles are 4/5 without pain or limitations. reflexes 2/3 patella and achilles B. sensation WNL to gross light touch in B LE. - Balance/Special Test Scores Oswestry Low Back Score: 23 - Goals Goal 1:: sleep without waking due to pain Goal Time Frame: 4-6 Weeks Goal 2:: Patient feel knee pain and stiffness 75% better at 1/10 at worst adn LBP manageable Goal Time Frame: 4-6 Weeks Goal 3:: Oswestry score 5 or less Goal Time Frame: 4-6 Weeks Goal 4:: I management of pain with HEp./pool ex. Goal Time Frame: 4-6 Weeks - Rehabilitation Potential Physical Therapy Diagnosis: degenerative knee pain and LBP Rehabilitation Potential: Fair - Anticipated Interventions Patient/Client Instruction: Educate patient on: Condition, Plan of Care For the Purpose of:: To decrease pain, To increase ROM, To improve nutrient delivery to tissue, To improve muscle performance and motor function Therapeutic Exercise to Include: Strength training, Postural training, Flexibilty training, Gait and locomotor training, In an aquatic setting, Passive ROM, Active ROM, Dynamic Lumbar Stabilization, Lynne Exercises For the Purpose of:: To decrease pain, To increase ROM, To improve nutrient delivery to tissue, To improve muscle performance and motor function, To i ncrease tolerance to activity/condition/position, To improve ability of physical actions for home/community/work/leisure Thank you for the opportunity to evaluate your patient. For Medicare and Medicare HMO plans, please review the plan of care and approve it. It will need to be FAXED BACK to us at [phone] for Medicare purposes. For Medicare only, by signing this I certify the plan of care. Please let me know if there are questions or concerns regarding this plan of care. Physician Signature: Date:
--- NOTE | 2022-04-01 17:32 | HP.PTREVAL_ITS ---
Pavithra Felix, ARCADE TECHNICIAN-C, It has been my pleasure to treat SHARON PEREIRA over the last 10 visits for L knee pain and lumbar pain with radiculopathy.. Please see the progress note below for an update on the physical therapy plan of care! Subjective: Getting better in ROM in knees, still bothersome in L medial knee to walk or lift. 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 R knee is OK. LB is not really a big problem. Will have MRI on LB from spinal surgeon. Wakes up each night with pain. No f/u for knee pain. Moves better in the water. Tightens up at home. On feet most of day and they get weak and tired and she needs to sit. Was on steroids for a few days for back from spine doctor. Objective/Function: LB AROM ext mod limited and tight, flexion and SB min limited and no pain. L knee ROM improving to about 115. Walks with some L antalgia in decreased stance time. Overall some mild improvements. Plan Plan: f/u 4 weeks to check goals, L knee ROM and LB ROM and progress with subjective and I pool workout. Also MRI results. Balance/Gait/Functional tests - Balance/Special Test Scores Oswestry Low Back Score: 20 Goals Goal 1:: sleep without waking due to pain Goal Time Frame: 4-6 Weeks Goal Progress: Not Progressing Goal 2:: Patient feel knee pain and stiffness 75% better at 1/10 at worst adn LBP manageable Goal Time Frame: 4-6 Weeks Goal Progress: 25% Goal 3:: Oswestry score 5 or less Goal Time Frame: 4-6 Weeks Goal Progress: Not Progressing Goal 4:: I management of pain with HEp./pool ex. Goal Time Frame: 4-6 Weeks Goal Progress: Progressing Anticipated Interventions Patient/Client Instruction: Educate patient on: Condition, Plan of Care For the Purpose of:: To decrease pain, To increase ROM, To improve nutrient delivery to tissue, To improve muscle performance and motor function Therapeutic Exercise to Include: Strength training, Postural training, Flexibilty training, Gait and locomotor training, In an aquatic setting, Passive ROM, Active ROM, Dynamic Lumbar Stabilization, Lynne Exercises For the Purpose of:: To decrease pain, To increase ROM, To improve nutrient delivery to tissue, To improve muscle performance and motor function, To increase tolerance to activity/condition/position, To improve ability of physical actions for home/community/work/leisure Please do not hesitate to contact me at [phone] by phone or if you have questions or concerns regarding this new plan of care! Sincerely, Chidi Felix, DPT, OCS, CSCS
--- NOTE | 2022-06-10 15:26 | HP.PT.NRP ---
SHARON PEREIRA was seen in my office for initial evaluation on 02/04/22. The following Plan of Care was established for this patient: Initial Frequency: 3x /Week Initial Duration: 4-6 Weeks Patient/Client Instruction: Educate patient on: Condition, Plan of Care For the Purpose of:: To decrease pain, To increase ROM, To improve nutrient delivery to tissue, To improve muscle performance and motor function Therapeutic Exercise to Include: Strength training, Postural training, Flexibilty training, Gait and locomotor training, In an aquatic setting, Passive ROM, Active ROM, Dynamic Lumbar Stabilization, Lynne Exercises For the Purpose of:: To decrease pain, To increase ROM, To improve nutrient delivery to tissue, To improve muscle performance and motor function, To increase tolerance to activity/condition/position, To improve ability of physical actions for home/community/work/leisure This patient was last seen in our office 04/01/22. Pertinent comments regarding their Physical therapy will appear below: Pt seen 10 visits and was improving slowly at 25% better. she was to continue via HEP and f/u one month later but did not schedule or attend that visit. At this point, it has been over 6 weeks and I will discontinue due to nonattendance. At this point I will be discontinuing this patient from physical therapy. I would be happy to see this patient again in the future if found appropriate by the physician. Thank you! Chidi Felix, DPT, OCS, CSCS Balance/Gait/Functional tests - Balance/Special Test Scores Oswestry Low Back Score: 20
== END 2022-04-01 19:00 | disposition home or self-care (01) ==
LOC: PT 17:00
PROVIDERS: PCP Internal Medicine; Referring Provider Nurse Practitioner Family; Visit Provider Nurse Practitioner Family
DX: M54.16 Radiculopathy, lumbar region; M25.562 Pain in left knee
CPT/HCPCS: 97110; 97113; 97162; 97530

== ENCOUNTER 2022-06-19 12:49 | Outpatient (RCR) | payer OTHER, SELFPAY ==
--- NOTE | 2022-06-19 14:06 | HP.OTEVAL_ITS ---
Patient's Visit Information SHARON PEREIRA is a 56 year old F, referred to Occupational Therapy by RAUDEL ROMO, with a diagnosis of CTS. Date of Evaluation: 06/19/22 Occupational Therapist: Lou Monaco, GORDO/Shanelle, CHT - Subjective This 56 year old female was seen for OT eval with dx of CTS. Pt states had years of symptoms for at least 2 years or more. Pt states she decided to have sx. because she was waking up at night with numbness. pt had endoscopic release bilateral CTR on 06/13/22. pt states her symptoms have been gone! pt states she is happy she had sx. pt is right handed. 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 Pt states she does have to secure loads with pushing down on pipe to secure the ratchet straps. pt is concerned with this task but feels all other work tasks she will be able to perform. - ROM Wrist: right 60/70 left 55/65 Opposition: Kapandji opposition scale right 10 left 10 ROM Comments: pt demo full composite fist bilateral hands. - Strength Strength Comments: test strength in 4 weeks - Sensation Sensation Comments: states symptoms have resolved - Rehabilitation General Assessment: pt arrives 6 days s/p endoscopic bilateral CTR. Pt arrives with one stich in bilateral wrist. Pt demo full ROM, bilateral full composite fist, some light yellow signs of busing. pt reports she is IND with ADLs and IADLs. Pt feels she can perform HEP at this time. Pt states she wants to save her therapy sessions for Physical therapy when she has her knee sx. as she has 40 visits combined PT/OT. This therapist ed. pt in HEP of tendon glides, wrist AROM light daily use for IADLS and ADLS. Therapist advised to avoid vibration and let pain be guide to returning to her PLOF. pt is does exercise in pool but will wait until stitched are out to return to pool- (therapists advised 3 days) pt demo understanding. pt will continue with HEP and return to use as tolerated- pt to call or notify therapist if she has questions. pt demo understanding and agrees to POC. Rehabilitation Potential: Excellent - Anticipated Interventions A/AAROM/PROM, Scar Care, Modalities, Education re Diagnosis, Home Program - Visit Plan General Plan: order indicates pt to continue therapy until pt is able to make a full fist. pt able to do so pt will cont. with HEP TEXT: Thank you for the opportunity to evaluate your patient. For Medicare and Medicare HMO plans, please review the plan of care and approve it. It will need to be FAXED BACK to us at [phone] for Medicare purposes. Please let me know if there are questions or concerns regarding this plan of care. Physician Signature: Date:
--- NOTE | 2022-06-19 14:10 | HP.OTEVAL ---
Patient's Visit Information SHARON PEREIRA is a 56 year old F, referred to Occupational Therapy by RAUDEL ROMO, with a diagnosis of CTS. Date of Evaluation: 06/19/22 Occupational Therapist: Lou Monaco, GORDO/Shanelle, CHT - Subjective This 56 year old female was seen for OT eval with dx of CTS. Pt states had years of symptoms for at least 2 years or more. Pt states she decided to have sx. because she was waking up at night with numbness. pt had endoscopic release bilateral CTR on 06/13/22. pt states her symptoms have been gone! pt states she is happy she had sx. pt is right handed. 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 Pt states she does have to secure loads with pushing down on pipe to secure the ratchet straps. pt is concerned with this task but feels all other work tasks she will be able to perform. - ROM Wrist: right 60/70 left 55/65 Opposition: Kapandji opposition scale right 10 left 10 ROM Comments: pt demo full composite fist bilateral hands. - Strength Strength Comments: test strength in 4 weeks - Sensation Sensation Comments: states symptoms have resolved - Quick DASH-Disab of Arm,Shoulder& Hand Quick DASH Score: 15.9075 - Rehabilitation General Assessment: pt arrives 6 days s/p endoscopic bilateral CTR. Pt arrives with one stich in bilateral wrist. Pt demo full ROM, bilateral full composite fist, some light yellow signs of busing. pt reports she is IND with ADLs and IADLs. Pt feels she can perform HEP at this time. Pt states she wants to save her therapy sessions for Physical therapy when she has her knee sx. as she has 40 visits combined PT/OT. This therapist ed. pt in HEP of tendon glides, wrist AROM light daily use for IADLS and ADLS. Therapist advised to avoid vibration and let pain be guide to returning to her PLOF. pt is does exercise in pool but will wait until stitched are out to return to pool- (therapists advised 3 days) pt demo understanding. pt will continue with HEP and return to use as tolerated- pt to call or notify therapist if she has questions. pt demo understanding and agrees to POC. Rehabilitation Potential: Excellent - Anticipated Interventions A/AAROM/PROM, Scar Care, Modalities, Education re Diagnosis, Home Program - Visit Plan General Plan: order indicates pt to continue therapy until pt is able to make a full fist. pt able to do so pt will cont. with HEP TEXT: Thank you for the opportunity to evaluate your patient. For Medicare and Medicare HMO plans, please review the plan of care and approve it. It will need to be FAXED BACK to us at [phone] for Medicare purposes. Please let me know if there are questions or concerns regarding this plan of care. Physician Signature: Date:
== END 2022-06-19 19:00 | disposition home or self-care (01) ==
LOC: OT 12:49
PROVIDERS: PCP Internal Medicine
DX: G56.03 Carpal tunnel syndrome, bilateral upper limbs (principal)
CPT/HCPCS: 97110; 97166

== ENCOUNTER 2022-10-22 15:30 | Outpatient (RCR) | payer OTHER, SELFPAY ==
--- NOTE | 2022-12-29 15:08 | HP.PTDCSUM ---
Discharge Summary D/C summary: It has been my pleasure to treat SHARON PEREIRA referred by BONNIE YOUNG, with the diagnosis of s/p 08-07-22 L partial med/lat menisectomy and lat femoral and patella chond for a total of 6 visit(s). Discharge Date: Please see the following information for a summary of their discharge status. Subjective Subjective: pt feels she is ready to do the ex indep. Would like to cancel all appts till she sees the PT again. Pain L knee: Pain Intensity (Out of 10): 4 R knee: Pain Intensity (Out of 10): 4 Objective Objective/Function: pt is going to cancel the rest of her appts till she sees the PT and pt is also worried about financial issues as well. Goals Goal 1:: I HEP and H&W routine Goal 2:: Increase L knee ROM (at time of the eval: R knee AROM: 0-121 L knee AROM: -4 to 116 degrees) Goal 3:: Increase LE strength: R hip flex 11.1 and L 8.7 R knee ext 13.3 and L 6.8 R knee flex 8.2 and L 7.3 R hip abd in S/L 9.5 and 7.4 Goal 4:: Walk with heel to toe fluid gait pattern with equal stance time on B LE Goal 5:: Decrease freq of tripping on her own feet with gait (due to not DF with gait) Plan Plan: 3X/ week for 6 weeks for L knee AROM, L knee hip and ankle strength, gait training with HEP. Pt wants to learn an I gym routine at the end of her therapy so that she can continue on her own after HEP: standing heel and toe raises, QS, SLR, heel slides, bridges, and walking with heel to toe gait pattern D/C Information d/c sentence: If there are questions or concerns regarding this patient's physical therapy, please feel free to call me at [phone]. Thank you for the referral of this patient. Sincerely, Luann Roman, MPT Balance/Gait/Functional tests Balance/Special Test Scores Lower Extremity Functional Score: 36
== END 2022-10-22 19:00 | disposition home or self-care (01) ==
LOC: PT 15:30
PROVIDERS: PCP Internal Medicine
DX: S83.282D Other tear of lateral meniscus, current injury, left knee, subsequent encounter (principal); S83.242D Other tear of medial meniscus, current injury, left knee, subsequent encounter; M94.262 Chondromalacia, left knee
CPT/HCPCS: 97110; 97161

== ENCOUNTER → 2023-09-28 | Outpatient (CLI) | payer OTHER, SELFPAY ==
--- NOTE | 2023-09-28 09:06 | RAD_ITS ---
STUDY: X-RAY - PELVIS AND BILATERAL HIPS REASON FOR EXAM: Female, 57 years old. Bilateral groin pain. TECHNIQUE: AP view of the pelvis.? 2 views of the right hip, and 2 views of the left hip were obtained. COMPARISON: Pelvis x-rays dated June 08, 2013 FINDINGS: Normal bowel gas pattern. Normal soft tissues. Stable posterior fusion from L4 to S1 with intervertebral disc prostheses. Stable mild arthrosis of both sacroiliac joints. Slight progression of arthrosis of the symphysis pubis. Mild arthrosis of both hips, unchanged. RAD/Hips B/L min 2 views w/ Pelvis IMPRESSION: Stable postsurgical changes and osteoarthritic changes. No acute abnormality or erosive changes. Electronically Signed: Yoan Mcdonnell MD at 9:59 EDT ,
--- NOTE | 2023-09-28 09:06 | RAD_ITS ---
STUDY: X-RAY - LUMBAR SPINE REASON FOR EXAM: Female, 57 years old. Sciatica. TECHNIQUE: 4 view(s) of the lumbar spine were obtained. COMPARISON: MRI of the lumbar spine report dated December 25, 2017 and report of x-rays performed September 28, 2012 FINDINGS: Normal lumbar lordosis. Mild levoscoliosis. Normal alignment of the vertebral bodies. Relatively stable diffuse lower thoracic and lumbosacral facet sclerosis. Posterior fusion from L4 to S1 with intervertebral disc prostheses, unchanged. Mild intervertebral disc space narrowing diffusely with small osteophytes most marked at L1-L2. Mild arthrosis of both sacroiliac joints and both hips, unchanged. Normal soft tissues. RAD/L/S Spine Min 4 Views IMPRESSION: Stable mild lower thoracic and lumbosacral spondylosis and posterior fusion from L4 to S1. No acute abnormality or erosive changes. Electronically Signed: Yoan Mcdonnell MD at 10:02 EDT ,
== END | disposition home or self-care (01) ==
PROVIDERS: PCP Internal Medicine; Referring Provider Internal Medicine; Visit Provider Internal Medicine
DX: R10.31 Right lower quadrant pain (principal); R10.32 Left lower quadrant pain; M54.30 Sciatica, unspecified side; M25.559 Pain in unspecified hip
CPT/HCPCS: 72110; 73521

== ENCOUNTER → 2023-12-29 | Outpatient (CLI) | payer OTHER, SELFPAY ==
--- NOTE | 2023-12-29 15:22 | BI_ITS ---
MAMMOGRAPHY - BILATERAL SCREENING REASON FOR EXAM: Female, 58 years old. Routine annual screening examination. PERTINENT HISTORY: Sister with breast cancer. Remote right stereotactic breast biopsy. TECHNIQUE: Digital bilateral breast promise (3D mammographic acquisition) in the CC and MLO projections. 2-D mediolateral oblique (MLO) and craniocaudad (CC) views of both breasts were obtained. CAD: Full Field Digital Mammography with Computer Added Detection was performed. COMPARISON: Comparison is made with prior study January 16, 2022 and March 15, 2019. FINDINGS: Breast Composition: There are scattered areas of fibroglandular density. There are no dominant masses or suspicious calcifications. A tissue clip marker is once again seen in the deep upper lateral aspect of the right breast. Stable small benign-appearing bilateral axillary lymph nodes. No other significant abnormalities are identified. There has been no significant change since the prior study. BI/SCRN MAMM (CAD)W/PROMISE BILAT IMPRESSION: Stable bilateral screening mammogram. Yearly follow-up mammogram recommended. (A) ASSESSMENT CATEGORY: BIRADS Category 2: Benign. A letter regarding these results will be sent to the patient by the facility within 30 days. Approximately 10% of breast cancers are not detected by mammography. A normal mammogram should not delay biopsy of a clinically suspicious abnormality. [id number] Electronically Signed: Leonides Forbes MD at 8:21 EDT ,
== END | disposition home or self-care (01) ==
LOC: OPBD 15:22
PROVIDERS: PCP Internal Medicine; Referring Provider Internal Medicine; Visit Provider Internal Medicine
DX: Z12.31 Encounter for screening mammogram for malignant neoplasm of breast (principal)
CPT/HCPCS: 77063; 77067